=== PATIENT | female | born 1955 | race Caucasian/White ===

== ENCOUNTER 2016-06-14 13:44 | Emergency (ER) | payer OTHER ==
[2016-06-14 12:20] LABS: BASOPHIL 0.2 % (0-2); EOSINOPHIL 2.4 % (0-5); HCT 41.5 % (37.0-47.0); HGB 14.2 g/dl (12.5-16.0); LYMPHOCYTE 30.4 % (15-48); MCH 29.6 pg (25.0-31.0); MCHC 34.2 g/dL (32.0-36.0); MCV 86.5 fL (78.0-100.0); MONOCYTE 10.8 % (0-12); MPV 10.1 fL (6.0-9.5); NEUTROPHIL 56.2 % (41-80); PLT 233 K/uL (150-400); RDW 13.6 % (11.5-14.0); WBC 10.3 K/uL (4.0-10.5)
[2016-06-14 12:24] LABS: INR 1.16 (0.9-1.2); PROTHROMBIN TIME 14.4 SECONDS (11.7-14.0); PTT 23.5 SECONDS (23.2-31.4)
[2016-06-14 12:45] LABS: ALBUMIN 4.5 g/dL (3.5-5.0); BILIRUBIN - TOTAL 0.6 mg/dL (0.1-1.0); CREATININE 0.8 mg/dL (0.5-1.0); GLOBULIN (CALCULATION) 2.8 g/dL (2.2-4.2); MAGNESIUM 1.86 mg/dL (1.40-2.10); TOTAL PROTEIN 7.3 g/dL (6.4-8.3)
[2016-06-14 13:30] LABS: CKMB 1.01 ng/mL (0.97-4.94); MYOGLOBIN 36 ng/mL (26-65); PRO-BNP 110 pg/mL (0-125); TROPONIN T < 0.010 ng/mL
== END 2016-06-14 17:30 | disposition home or self-care (01) ==
LOC: FER 13:44
PROVIDERS: Internal Medicine
DX: R07.9 Chest pain, unspecified (principal); R00.1 Bradycardia, unspecified; R06.02 Shortness of breath; I11.9 Hypertensive heart disease without heart failure; K21.9 Gastro-esophageal reflux disease without esophagitis; F32.9 Major depressive disorder, single episode, unspecified; E78.5 Hyperlipidemia, unspecified; Z88.5 Allergy status to narcotic agent; Z79.899 Other long term (current) drug therapy; Z95.5 Presence of coronary angioplasty implant and graft
CPT/HCPCS: 36415; 71010; 71275; 80053; 82550; 82553; 83735; 83874; 83880; 84484; 85025; 85610; 85730; 93005; J2405; Q9967

== ENCOUNTER 2021-06-05 18:11 | Emergency (ER) | payer OTHER ==
[~2021-06-05 18:11] MED LIST: BENTYL10 MG PO; MEDROL 4MG DOSEP4 MG PO; MYLICON80 MG PO; PERCOCET 5-3251 EACH PO; VENTOLIN HFA IN18 GM INH; ZPAK PO
[2021-06-05 18:59] LABS: BASOPHIL 0.3 % (0-2); EOSINOPHIL 5.5 % (0-7); HCT 36.9 % (37.0-47.0); HGB 12.3 g/dl (12.5-16.0); LYMPHOCYTE 26.8 % (15-48); MCH 29.4 pg (25.0-31.0); MCHC 33.3 g/dL (32.0-36.0); MCV 88.1 fL (78.0-100.0); MONOCYTE 10.7 % (0-12); NEUTROPHIL 56.6 % (41-80); NRBC 0; PLT 144 K/uL (150-400); RBC 4.19 M/uL (4.20-5.40); RDW 12.6 % (11.5-14.0); WBC 7.7 K/uL (4.0-10.5)
[2021-06-05 19:14] LABS: BUN 20 mg/dL (7-18); BUN/CREAT RATIO (CALC) 20.4 RATIO; C-REACTIVE PROTEIN <0.20 mg/dL (<=0.90); CHLORIDE 103 mmol/L (98-107); CO2 (BICARBONATE) 27 mmol/L (21-32); CREATININE 0.98 mg/dL (0.51-0.95); GLUCOSE 124 mg/dL (74-106); POTASSIUM 3.9 mmol/L (3.5-5.1); URIC ACID 6.1 mg/dL (2.6-6.2)
== END 2021-06-05 20:37 | disposition home or self-care (01) ==
LOC: FER 18:11
PROVIDERS: Emergency Medicine
DX: M25.571 Pain in right ankle and joints of right foot (principal); R22.41 Localized swelling, mass and lump, right lower limb; I25.2 Old myocardial infarction; I10 Essential (primary) hypertension; J45.909 Unspecified asthma, uncomplicated; Z88.5 Allergy status to narcotic agent; Z79.82 Long term (current) use of aspirin
CPT/HCPCS: 36415; 73610; 80048; 84550; 85025; 86140; 93971

== ENCOUNTER → 2021-07-13 | Day surgery (SDC) | payer OTHER ==
[~2021-07-13] VITALS: Ht 162.6 cm; Wt 87.5 kg
[~2021-07-13] MED LIST changes: +ASPIRIN EC81 MG PO; +BISOPROLOL FUMAR5 MG PO; +CRESTOR20 M1 PO; +FLONASE ALLER15.8 ML; +IBUPROFEN800 MG PO; +NITROQUIK SL0.4 MG SL; +NORCO 5/3251 EACH PO; +OMEPRAZOLE40 MG PO; +VALACYCLOVIR1000 MG PO; +VITAMIN D21250 MCG PO; +ZOLOFT100 MG PO
== END | disposition home or self-care (01) ==
LOC: FAS 10:10
DX: D12.2 Benign neoplasm of ascending colon (principal); D12.0 Benign neoplasm of cecum; D12.4 Benign neoplasm of descending colon; D12.5 Benign neoplasm of sigmoid colon; D12.3 Benign neoplasm of transverse colon; G89.29 Other chronic pain; R10.32 Left lower quadrant pain; K43.2 Incisional hernia without obstruction or gangrene; R07.9 Chest pain, unspecified; I10 Essential (primary) hypertension; E78.5 Hyperlipidemia, unspecified; K21.9 Gastro-esophageal reflux disease without esophagitis; G47.30 Sleep apnea, unspecified; J45.909 Unspecified asthma, uncomplicated; Z95.5 Presence of coronary angioplasty implant and graft; Z99.89 Dependence on other enabling machines and devices; Z88.5 Allergy status to narcotic agent; Z79.82 Long term (current) use of aspirin; Z79.899 Other long term (current) drug therapy; Z87.891 Personal history of nicotine dependence; Z72.89 Other problems related to lifestyle
CPT/HCPCS: J2704; J7120